=== PATIENT | male | born 1945 | race Caucasian/White ===

== ENCOUNTER 2017-01-26 06:49 | Day surgery (SDC) | payer MEDICARE, MEDICAID ==
--- NOTE | 2017-01-07 09:19 | HP ---
CC: Dr. Ellis * HISTORY AND PHYSICAL: DATE OF PLANNED ADMISSION AND SURGERY: 01/26/17 - [facility] HISTORY OF PRESENT ILLNESS: Mr. Stearns is a 71-year-old white male, who is admitted with a suspicious bladder lesion for cystoscopy and excisional biopsies. Mr. Stearns was referred by Dr. Ellis about 6 months ago because of a small degree of asymptomatic microscopic hematuria. There was no associated flank or abdominal pain and no voiding symptoms. His past history is negative. 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 He is a nonsmoker. He denies any history of renal diseases or calculi. In June 2016, he had a work-up of the microhematuria with renal ultrasound, which was normal and with a cystoscopy which showed minimal degree of bladder wall hyperemia that did not seem to be suspicious enough for biopsies. His urine cytology was negative. The patient has remained asymptomatic. He was seen recently for follow-up. His urinalysis was negative. Follow-up cystoscopy showed 1 flat hyperemic area in the left anterolateral bladder wall that was slightly suspicious. There were also smaller hyperemic areas that did not look suspicious. There were no papillary lesions seen. No other abnormalities were noted. Because of that lesion noted on the recent cystoscopy and the history of exposure to solvents, the patient is admitted for cystoscopy and excisional biopsies. PAST MEDICAL HISTORY AND SYSTEM REVIEW: He is in excellent health. MEDICATIONS: He is on no chronic medications. ALLERGIES: He denies any allergies to medications. PHYSICAL EXAMINATION GENERAL: Pleasant and healthy looking white male. VITAL SIGNS: Blood pressure 130/80, pulse of 80. LUNGS: Clear. HEART: Regular and rhythmic. No murmurs. ABDOMEN: Soft. No masses, no tenderness, and no CVA tenderness. EXTERNAL GENITALIA: Normal. RECTAL: Had showed a nonenlarged and nonsuspicious prostate. IMPRESSION: History of minimal degree of microscopic hematuria with hyperemic area in the bladder wall. PLAN: For cystoscopy and excisional biopsies. I discussed the above plans with the patient. All his questions were answered. [id number] #: [id number] MTDD
[~2017-01-26 06:49] MED LIST: Buffered Lidocaine 0.9% SYRIN* 5 ML/SYR SYRINGE INTRADERM ONE
[2017-01-26] MEDS ORDERED: cefTRIAXone(*) 1 GM ADVAN ONE (07:05)
[2017-01-26] MEDS ORDERED: Buffered Lidocaine 0.9% SYRIN* 5 ML/SYR SYRINGE ONE (07:05)
[2017-01-26] MEDS ORDERED: cefTRIAXone VIAL(*) 1,000 MG in NS 0.9% 50 ML* 50 ML IVPB ONE (07:30)
[2017-01-26] MEDS ORDERED: fentaNYL* 50 MCG/ML 2 ML VIAL (100 MCG VIAL) ONE (08:26)
[2017-01-26] MEDS ORDERED: Midazolam* 1 MG/ML 2 ML VIAL (2 MG) ONE (08:26)
[2017-01-26] MEDS ORDERED: Dexamethasone IV* 4 MG/ML 1 ML (4 MG) ONE (09:40)
[2017-01-26] MEDS ORDERED: Ketorolac INJ* 30 MG/ML 1 ML VIAL ONE (09:40)
[2017-01-26] MEDS ORDERED: Propofol* 10 MG/ML 20 ML BTL IV PUSH ONE (09:40)
[2017-01-26] MEDS ORDERED: Lidocaine 2% PF * 5 ML VIAL ONE (09:40)
[2017-01-26] MEDS ORDERED: Famotidine IV* 10 MG/ML 2 ML (20 mg) ONE (09:40)
[2017-01-26 11:35] VITALS: BP 146/92
--- NOTE | 2017-01-26 16:03 | OP ---
CC: Dr. Ellis * DATE OF OPERATION: 01/26/17 - [facility] DATE OF : 47 SURGEON: Nain Nolasco MD ANESTHESIOLOGIST: Bolivar Fried MD ANESTHESIA: General. PRE-OP DIAGNOSIS: Bladder lesions. POST-OP DIAGNOSIS: Bladder lesions, pending pathology. OPERATIVE PROCEDURE: 1. Cystoscopy. 2. Excisional biopsies and fulguration of bladder lesions (anterior wall). INDICATION FOR PROCEDURE: Mr. Stearns is a 71-year-old white male who was worked up for microscopic hematuria, and he was noted to have two hyperemic lesions in the anterior bladder wall, each measuring about 1 cm in diameter. 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 Urine cytology was negative. Renal ultrasound normal. Because of the above history and findings, the above procedure was advised. PATHOLOGY AT CYSTOSCOPY: The penile and bulbar urethra looked normal. The prostatic urethra measured 2.5 cm in length and there was only moderate obstruction by the prostate. Examination of the bladder showed normal ureteral orifices. There was a 1 cm diverticulum noted in the mid base of the bladder. Two slightly hyperemic lesions were noted in the anterior wall. They were only slightly suspicious for malignancy. The rest of the bladder wall looked normal. No papillary lesions were noted. DESCRIPTION OF PROCEDURE: After successful general anesthesia, patient was placed in the lithotomy position and was prepped and draped for cystoscopy. Cystoscopy was performed. The bladder was inspected and the above findings were noted. Using the rigid biopsy forceps, the above described lesions were excised and sent for pathology. The sites of the biopsies and the surrounding tissue was thoroughly fulgurated with the coagulation current using the Bugbee electrode. At the completion of the procedure, there was very good hemostasis. No residual suspicious lesions were noted. The bladder was emptied and the cystoscope was removed. The patient tolerated the procedure well and left the operating room in good condition. [id number] #: [id number] MTDD
== END 2017-01-26 12:04 | disposition home or self-care (01) ==
LOC: OR 06:49
PROVIDERS: ATTEND Urology
DX: N32.9 Bladder disorder, unspecified (principal); N32.3 Diverticulum of bladder; N13.8 Other obstructive and reflux uropathy
CPT/HCPCS: 88305; J0696; J1100; J1885; J2250; J2704; J3010

== ENCOUNTER 2022-07-06 14:29 | Inpatient (IN) ==
[2022-07-06 15:57] LABS: ABS Basophils 0.1 10^3/ul (0-0.2); ABS Lymphocytes 1.3 10^3/ul (1.0-4.8); ABS Monocytes 0.7 10^3/ul (0-0.8); ABS Neutrophils 5.6 10^3/ul (1.5-7.7); Eosinophil % 0.5 %; Hematocrit 41 % (42-52); Hemoglobin 14.1 g/dL (14.0-18.0); Mean Corpuscular HGB Conc 34 g/dL (31-36); Mean Corpuscular Hemoglobin 33 pg (27-31); Mean Corpuscular Volume 96 fL (80-94); Mean Platelet Volume 8.3 fL (7.4-10.4); Platelet Count 213 10^3/uL (150-450); Red Blood Count 4.28 10^6 /uL (4.18-5.48); Red Cell Distribution Width 13 % (10-15); White Blood Count 7.7 10^3/uL (3.5-10.8)
[2022-07-06 16:42] LABS: Albumin 4.3 g/dL (3.2-5.2); Calcium 9.4 mg/dL (8.6-10.3); Creatinine, Serum 0.89 mg/dL (0.67-1.17); INR 1.07 (0.88-1.18); Potassium 3.9 mmol/L (3.5-5.0); Total Protein 6.4 g/dL (6.4-8.9); eGFR CKD-EPI 89.4 (>60)
[2022-07-06 16:43] LABS: C Reactive Protein 1.38 mg/L (<8.01); Globulin 2.1 g/dL (2-4); Total Bilirubin 0.9 mg/dL (0.2-1.0)
[2022-07-06 16:50] LABS: Urine Appearance Clear; Urine Bilirubin Negative (Negative); Urine Blood Negative (Negative); Urine Color Yellow; Urine Glucose Negative (Negative); Urine Ketones Negative (Negative); Urine Nitrite Negative (Negative); Urine Protein Negative (Negative); Urine Specific Gravity 1.023 (1.002-1.030); Urine Urobilinogen Negative (Negative)
[2022-07-06 17:00] LABS: Urine Benzodiazepine Screen None Detected (None Detect); Urine Cannabinoids Screen None Detected (None Detect); Urine Opiates Screen None Detected (None Detect)
[2022-07-06 17:56] LABS: High Sensitivity Troponin 1 Hr 6 pg/mL (<20)
[2022-07-06 19:03] LABS: TSH Ultra Thyroid Stim Horm 2.63 mcIU/mL (0.34-5.60)
[2022-07-06 19:15] LABS: Folate 9.09 ng/mL (5.90-24.80)
[2022-07-06] MEDS ORDERED: Cyanocobalamin INJ 1,000 MCG/ML VIAL 1 ML VIAL IM ONE (21:40)
[2022-07-07] MEDS ORDERED: Potassium Chlor 10 meq TAB PO ONE (09:21)
[2022-07-07] MEDS: Lactulose 30 ml UDC PO SCH ×3 (10:26→22:19)
[2022-07-07] MEDS ORDERED: Gadoteridol (CONTRAST) 279.3 MG/ML 10 ML IV ONE (15:59)
[2022-07-07] MEDS ORDERED: Haloperidol 5 mg/ml SDV IV/IM 5 MG/ML AMP IV SLOW PU ONE (20:01)
[2022-07-07] MEDS ORDERED: Haloperidol 5 mg/ml SDV IV/IM 5 MG/ML AMP ONE (20:04)
[2022-07-07] MEDS ORDERED: LORazepam 2 mg VIAL 1 ml IM ONE (20:07)
[2022-07-07] MEDS ORDERED: Lorazepam PYXIS KEY PRN ×3 (20:07→20:27)
[2022-07-07] MEDS ORDERED: Lorazepam PYXIS KEY ONE ×2 (20:09→20:17)
[2022-07-07] MEDS ORDERED: LORazepam 2 mg VIAL 1 ml ONE ×3 (20:09→20:22)
[2022-07-07] MEDS ORDERED: LORazepam 2 mg VIAL 1 ml IV PUSH ONE (20:13)
[2022-07-07] MEDS ORDERED: LORazepam 2 mg VIAL 1 ml IV PUSH PRN (20:27)
[2022-07-07] MEDS: Haloperidol 5 mg/ml SDV IV/IM 5 MG/ML AMP IV SLOW PU SCH (22:43)
[2022-07-08] MEDS: LORazepam 2 mg VIAL 1 ml IV PUSH PRN ×2 (01:55→05:31)
[2022-07-08] MEDS: Haloperidol 5 mg/ml SDV IV/IM 5 MG/ML AMP IV SLOW PU SCH ×2 (03:08→09:43)
[2022-07-08 06:51] LABS: CO2 Carbon Dioxide 25 mmol/L (22-32); Calcium 9.1 mg/dL (8.6-10.3); Chloride 104 mmol/L (101-111); Sodium 139 mmol/L (135-145)
[2022-07-08 06:55] LABS: Anion Gap 10 mmol/L (2-11)
[2022-07-08 06:57] LABS: Blood Urea Nitrogen 12 mg/dL (6-24); Creatinine, Serum 0.74 mg/dL (0.67-1.17); Glucose 104 mg/dL (70-100); eGFR CKD-EPI 94.5 (>60)
[2022-07-08] MEDS ORDERED: Cyanocobalamin INJ 1,000 MCG/ML VIAL 1 ML VIAL IM SCH (09:00)
[2022-07-08] MEDS: Lactulose 30 ml UDC PO SCH ×3 (09:53→23:20)
[2022-07-08] MEDS ORDERED: Lactated Ringers 1000 ml BAG 1,000 ML IV SCH (21:00)
[2022-07-08] MEDS ORDERED: D5LR 1000 ml BAG 1,000 ML IV SCH (21:00)
[2022-07-08] MEDS ORDERED: D5NS 0.9% 1000 ml BAG 1,000 ML IV SCH (21:00)
[2022-07-08] MEDS: Thiamine 100 MG/ML 2 ml VIAL 500 MG in NS 0.9% 250 ml 250 ML IV SCH (21:14)
[2022-07-09] MEDS: Thiamine 100 MG/ML 2 ml VIAL 500 MG in NS 0.9% 250 ml 250 ML IV SCH ×3 (05:59→22:21)
[2022-07-09] MEDS ORDERED: Potassium Chlor 20 meq TAB.ER PO ONE (11:10)
[2022-07-09] MEDS: Lactulose 30 ml UDC PO SCH ×3 (12:27→22:23)
[2022-07-09] MEDS ORDERED: Iohexol 350 (CONTRAST) 500 ML MDV IV ONE (14:50)
[2022-07-09] MEDS ORDERED: Lidocaine 2% PF 5 ML VIAL ONE (15:59)
[2022-07-09] MEDS: NS 0.9% 1000 ml BAG 1,000 ML IV SCH (16:49)
[2022-07-09 16:55] LABS: PCO2 Arterial 28 mmHg (35-45); PO2 Arterial 73 mmHg (80-100)
[2022-07-09 17:02] LABS: Body Fluid Source Cerebral Spinal
[2022-07-09 17:20] LABS: CSF Glucose 96 mg/dL (40-70)
[2022-07-09 18:05] LABS: Body Fluid Appearance Clear; Body Fluid Color Colorless; CSF Tube # 4
[2022-07-09 18:06] LABS: Body Fluid WBC 1 /mcL
[2022-07-09 18:20] LABS: Body Fluid Mono 67 %; Body Fluid Total Cells Counted 6
[2022-07-09] MEDS ORDERED: Iodixanol (CONTRAST) 320 MG/ML 100 ML SDV IV ONE (18:24)
[2022-07-10] MEDS: Thiamine 100 MG/ML 2 ml VIAL 500 MG in NS 0.9% 250 ml 250 ML IV SCH ×3 (05:30→23:50)
[2022-07-10] MEDS: Lactulose 30 ml UDC PO SCH ×3 (09:07→23:37)
[2022-07-10 09:13] LABS: ABS Lymphocytes 0.5 10^3/ul (1.0-4.8); ABS Monocytes 0.7 10^3/ul (0-0.8); Eosinophil % 0.1 %; Hematocrit 42 % (42-52); Hemoglobin 14.2 g/dL (14.0-18.0); Lymphocyte % 5.9 %; Mean Corpuscular HGB Conc 34 g/dL (31-36); Mean Corpuscular Hemoglobin 33 pg (27-31); Mean Corpuscular Volume 96 fL (80-94); Mean Platelet Volume 7.9 fL (7.4-10.4); Platelet Count 191 10^3/uL (150-450); Red Blood Count 4.35 10^6 /uL (4.18-5.48); Red Cell Distribution Width 13 % (10-15); White Blood Count 8.2 10^3/uL (3.5-10.8)
[2022-07-10 09:42] LABS: Albumin 3.5 g/dL (3.2-5.2); Albumin/Globulin Ratio 1.7 (1-3); Calcium 8.8 mg/dL (8.6-10.3); Creatinine, Serum 0.76 mg/dL (0.67-1.17); Globulin 2.1 g/dL (2-4); Potassium 3.5 mmol/L (3.5-5.0); Total Bilirubin 1.4 mg/dL (0.2-1.0); Total Protein 5.6 g/dL (6.4-8.9); eGFR CKD-EPI 93.7 (>60)
[2022-07-10] MEDS: NS 0.9% 1000 ml BAG 1,000 ML IV SCH (09:54)
[2022-07-10 10:33] LABS: Magnesium 1.9 mg/dL (1.9-2.7); Phosphorus 2.2 mg/dL (2.5-5.0)
[2022-07-11] MEDS: NS 0.9% 1000 ml BAG 1,000 ML IV SCH (00:58)
[2022-07-11 06:20] LABS: ABS Lymphocytes 0.7 10^3/ul (1.0-4.8); ABS Monocytes 0.8 10^3/ul (0-0.8); ABS Neutrophils 5.2 10^3/ul (1.5-7.7); Eosinophil % 0.5 %; Hematocrit 38 % (42-52); Hemoglobin 12.9 g/dL (14.0-18.0); Lymphocyte % 10.9 %; Mean Corpuscular HGB Conc 34 g/dL (31-36); Mean Corpuscular Hemoglobin 32 pg (27-31); Mean Corpuscular Volume 95 fL (80-94); Mean Platelet Volume 8.2 fL (7.4-10.4); Platelet Count 182 10^3/uL (150-450); Red Cell Distribution Width 13 % (10-15); White Blood Count 6.8 10^3/uL (3.5-10.8)
[2022-07-11 06:37] LABS: Calcium 8.4 mg/dL (8.6-10.3); Creatinine, Serum 0.88 mg/dL (0.67-1.17); Potassium 3.4 mmol/L (3.5-5.0); eGFR CKD-EPI 89.7 (>60)
[2022-07-11] MEDS ORDERED: Potassium Chlor 20 meq TAB.ER PO ONE (07:53)
[2022-07-11] MEDS: Lactulose 30 ml UDC PO SCH ×3 (08:26→21:28)
[2022-07-11] MEDS ORDERED: Cyanocobalamin INJ 1,000 MCG/ML VIAL 1 ML VIAL IM SCH (09:00)
[2022-07-11] MEDS: Potassium & Sodium Phos 250 mg = 1 PACKET PO SCH ×3 (09:28→21:28)
[2022-07-12 08:10] LABS: ABS Eosinophils 0.1 10^3/ul (0-0.6); ABS Lymphocytes 0.8 10^3/ul (1.0-4.8); ABS Monocytes 0.8 10^3/ul (0-0.8); ABS Neutrophils 4.5 10^3/ul (1.5-7.7); Hematocrit 40 % (42-52); Hemoglobin 13.3 g/dL (14.0-18.0); Lymphocyte % 12.7 %; Mean Corpuscular HGB Conc 34 g/dL (31-36); Mean Corpuscular Hemoglobin 33 pg (27-31); Mean Corpuscular Volume 97 fL (80-94); Mean Platelet Volume 7.4 fL (7.4-10.4); Platelet Count 222 10^3/uL (150-450); Red Blood Count 4.09 10^6 /uL (4.18-5.48); Red Cell Distribution Width 13 % (10-15); White Blood Count 6.2 10^3/uL (3.5-10.8)
[2022-07-12 09:02] LABS: Calcium 8.5 mg/dL (8.6-10.3); Creatinine, Serum 0.78 mg/dL (0.67-1.17); Potassium 3.7 mmol/L (3.5-5.0)
[2022-07-12] MEDS ORDERED: Potassium Chlor 20 meq TAB.ER PO ONE (09:16)
[2022-07-12] MEDS: Lactulose 30 ml UDC PO SCH (09:58)
[2022-07-12] MEDS: Potassium & Sodium Phos 250 mg = 1 PACKET PO SCH ×3 (10:00→20:49)
[2022-07-12] MEDS ORDERED: Benzocaine (plain) Lozenge 15 MG MT PRN (13:24)
[2022-07-13] MEDS: Potassium & Sodium Phos 250 mg = 1 PACKET PO SCH ×3 (07:54→22:09)
[2022-07-13 16:43] LABS: CSF VDRL Negative (Negative)
[2022-07-13 20:03] LABS: HSV 1 PCR, CSF Negative (Negative); HSV 2 PCR, CSF Negative (Negative)
[2022-07-14] MEDS: Potassium & Sodium Phos 250 mg = 1 PACKET PO SCH ×3 (09:41→21:48)
[2022-07-15] MEDS: Potassium & Sodium Phos 250 mg = 1 PACKET PO SCH ×3 (08:56→20:33)
[2022-07-16] MEDS: Potassium & Sodium Phos 250 mg = 1 PACKET PO SCH ×3 (09:27→20:35)
[2022-07-17] MEDS: Potassium & Sodium Phos 250 mg = 1 PACKET PO SCH ×3 (09:19→20:27)
[2022-07-18] MEDS: Potassium & Sodium Phos 250 mg = 1 PACKET PO SCH ×3 (09:08→22:41)
[2022-07-19] MEDS: Potassium & Sodium Phos 250 mg = 1 PACKET PO SCH ×3 (10:49→21:36)
[2022-07-19] MEDS: Enoxaparin 40 MG/0.4 ML SYR SUBCUT SCH (12:12)
[2022-07-20] MEDS: Potassium & Sodium Phos 250 mg = 1 PACKET PO SCH ×3 (09:48→20:22)
[2022-07-20] MEDS: Enoxaparin 40 MG/0.4 ML SYR SUBCUT SCH (13:36)
[2022-07-21] MEDS: Potassium & Sodium Phos 250 mg = 1 PACKET PO SCH ×3 (09:17→19:56)
[2022-07-21] MEDS: Enoxaparin 40 MG/0.4 ML SYR SUBCUT SCH (15:00)
[2022-07-22 06:16] LABS: ABS Basophils 0.1 10^3/ul (0-0.2); ABS Eosinophils 0.2 10^3/ul (0-0.6); ABS Lymphocytes 1.7 10^3/ul (1.0-4.8); ABS Monocytes 0.7 10^3/ul (0-0.8); ABS Neutrophils 2.9 10^3/ul (1.5-7.7); Eosinophil % 3.1 %; Hematocrit 35 % (42-52); Hemoglobin 11.8 g/dL (14.0-18.0); Lymphocyte % 30.7 %; Mean Corpuscular HGB Conc 34 g/dL (31-36); Mean Corpuscular Hemoglobin 32 pg (27-31); Mean Corpuscular Volume 96 fL (80-94); Mean Platelet Volume 7.1 fL (7.4-10.4); Nucleated Red Blood Cells % 0.1; Platelet Count 338 10^3/uL (150-450); Red Blood Count 3.66 10^6 /uL (4.18-5.48); Red Cell Distribution Width 14 % (10-15); White Blood Count 5.5 10^3/uL (3.5-10.8)
[2022-07-22 06:33] LABS: Calcium 8.7 mg/dL (8.6-10.3); Creatinine, Serum 0.84 mg/dL (0.67-1.17); Potassium 4.1 mmol/L (3.5-5.0); eGFR CKD-EPI 90.9 (>60)
[2022-07-22] MEDS ORDERED: Cyanocobalamin INJ 1,000 MCG/ML VIAL 1 ML VIAL IM ONE (09:46)
[2022-07-22] MEDS: Potassium & Sodium Phos 250 mg = 1 PACKET PO SCH ×3 (09:50→21:25)
[2022-07-22] MEDS: Enoxaparin 40 MG/0.4 ML SYR SUBCUT SCH (11:38)
[2022-07-23] MEDS: Potassium & Sodium Phos 250 mg = 1 PACKET PO SCH ×3 (09:35→20:41)
[2022-07-23] MEDS: Enoxaparin 40 MG/0.4 ML SYR SUBCUT SCH (13:08)
[2022-07-24] MEDS: Potassium & Sodium Phos 250 mg = 1 PACKET PO SCH (10:04)
[2022-07-24] MEDS: Enoxaparin 40 MG/0.4 ML SYR SUBCUT SCH (12:26)
[2022-07-25] MEDS: Enoxaparin 40 MG/0.4 ML SYR SUBCUT SCH (12:42)
[2022-07-25 13:21] LABS: Calcium 9.3 mg/dL (8.6-10.3); Creatinine, Serum 0.85 mg/dL (0.67-1.17); Potassium 3.9 mmol/L (3.5-5.0); eGFR CKD-EPI 90.6 (>60)
[2022-07-25 13:55] LABS: ABS Eosinophils 0.1 10^3/ul (0-0.6); ABS Lymphocytes 1.1 10^3/ul (1.0-4.8); ABS Monocytes 0.6 10^3/ul (0-0.8); ABS Neutrophils 3.3 10^3/ul (1.5-7.7); Eosinophil % 2.2 %; Hematocrit 40 % (42-52); Hemoglobin 13.8 g/dL (14.0-18.0); Lymphocyte % 20.8 %; Mean Corpuscular HGB Conc 35 g/dL (31-36); Mean Corpuscular Hemoglobin 33 pg (27-31); Mean Corpuscular Volume 96 fL (80-94); Mean Platelet Volume 7.2 fL (7.4-10.4); Platelet Count 372 10^3/uL (150-450); Red Blood Count 4.13 10^6 /uL (4.18-5.48); Red Cell Distribution Width 14 % (10-15); White Blood Count 5.1 10^3/uL (3.5-10.8)
[2022-07-26] MEDS: Enoxaparin 40 MG/0.4 ML SYR SUBCUT SCH (11:50)
[2022-07-26 16:47] LABS: Rapid COVID-19 Molecular Undetected (Undetected)
[2022-07-27 10:33] VITALS: BP 120/55
[2022-07-27] MEDS: Enoxaparin 40 MG/0.4 ML SYR SUBCUT SCH (12:41)
== END 2022-07-27 13:05 | DRG 70 ==
LOC: ED 14:29 → EDHOLD 14:29 → SUATTDRO 21:36 → EDHOLD 07-07 16:05 → MED 07-07 16:47 → MEDTELE 07-10 08:29
PROVIDERS: ADMIT Hospitalist; ATTEND Internal Medicine